=== PATIENT | male | born 1990 | race Caucasian/White ===

== ENCOUNTER 2019-07-24 02:10 | Emergency (ER) | payer SELFPAY ==
[~2019-07-24] VITALS: Ht 175.3 cm; Wt 95.3 kg
--- NOTE | 2019-07-24 02:10 | NUR ---
PT AMBULATED FROM [facility] TO BED 11.
[2019-07-24 02:12] VITALS: BP 170/106
[2019-07-24 02:15] VITALS: BP 170/106
--- NOTE | 2019-07-24 02:35 | NUR ---
PATIENT LEFT WITHOUT BEING SEEN BY DR. FOLEY. PT PULLED IV OUT AND RAN OUT OF ER. STAFF SEARCHED PREMESIS, PT IS GONE. NO FURTHER CARE PROVIDED FOR PATIENT.
--- NOTE | 2019-07-24 02:35 | NUR ---
PT LEFT ID AND VALUABLES. LABLED AND GIVEN TO SECURITY.
== END 2019-07-24 02:35 | disposition left against medical advice (07) ==
LOC: MED 02:10
DX: F32.9 Major depressive disorder, single episode, unspecified (principal); Z53.21 Procedure and treatment not carried out due to patient leaving prior to being seen by health care provider